=== PATIENT | female | born 1950 | race Caucasian/White ===

== ENCOUNTER → 2016-10-20 12:54 | Outpatient (CLI) | payer MEDICARE ==
[~2016-10-20 12:54] MED LIST: ACCUPRIL40 MG PO; ASPIRIN EC81 M1 PO; CELEBREX200 MG PO; COREG25 MG PO; CRESTOR20 MG PO; EFFEXOR75 MG PO; ELIQUIS2.5 MG PO; HCTZ25 MG PO; HUMULIN R100 U/ML SC; LEVEMIR100 U/M1 SC; NEURONTIN 400400 MG PO; NEXIUM40 MG PO; NORVASC10 MG PO; OXYCODONE HCL5 MG PO; TRAZODONE HCL150 MG PO
[2016-11-16 13:24] VITALS: BMI 31.5
== END | disposition home or self-care (01) ==
LOC: D.LABREF 12:54
DX: M17.12 Unilateral primary osteoarthritis, left knee (principal); Z11.8 Encounter for screening for other infectious and parasitic diseases

== ENCOUNTER → 2016-11-03 17:03 | Outpatient (CLI) | payer MEDICARE ==
[2016-11-16 13:24] VITALS: BMI 31.5
== END | disposition home or self-care (01) ==
LOC: D.MAMMO 11:30
DX: Z12.31 Encounter for screening mammogram for malignant neoplasm of breast (principal)

== ENCOUNTER 2016-11-11 08:00 | Inpatient (IN) | payer MEDICARE ==
[~2016-11-11] VITALS: Ht 157.5 cm; Wt 78.2 kg
[2016-11-11 07:58] LABS: BASOPHILS 0.3 % (0.0-2.0); EOSINOPHILS 2.4 % (0-7); HEMATOCRIT 44.6 % (36.0-48.0); HEMOGLOBIN 15.1 g/dL (12-16); IMMATURE GRANULOCYTES 0.3 % (0-5); LYMPHOCYTES 27.1 % (15-50); MCH 27.7 pg (26.0-34.0); MCHC 33.9 g/dL (31.0-37.0); MCV 81.8 fL (80.0-100.0); MEAN PLATELET VOLUME 11.1 fL (7.4-10.4); MONOCYTES 5.8 % (2-11); NEUTROPHILS 64.1 % (40-80); PLATELET COUNT 173 10x3/uL (130-400); RBC 5.45 10x6/uL (4.00-5.40); RDW 13.7 % (11.5-14.5); WBC 6.8 10x3/uL (4.8-10.8)
[~2016-11-11 08:00] MED LIST changes: -ELIQUIS2.5 MG PO; -OXYCODONE HCL5 MG PO
[2016-11-11 08:08] LABS: INR 1.04 (0.85-1.17); PROTIME 13.5 SECONDS (11.6-15.0)
[2016-11-11 08:09] LABS: APTT 31.8 SECONDS (22.8-39.4)
[2016-11-11 08:27] LABS: ANION GAP 16.6 mmol/L (8-16); CALCIUM 9.4 mg/dL (8.5-10.1); POTASSIUM - SERUM 4.6 mmol/L (3.5-5.1)
[2016-11-11 08:38] LABS: APPEARANCE HAZY (CLEAR); BILIRUBIN NEGATIVE (NEGATIVE); COLOR YELLOW (YELLOW); GLUCOSE NEGATIVE (NEGATIVE); KETONE NEGATIVE (NEGATIVE); LEUKOCYTE ESTERASE 1+ (NEGATIVE); NITRITE NEGATIVE (NEGATIVE); PROTEIN 2+ mg/dL (NEGATIVE); RED CELLS - URINE RARE /hpf (0-5); SPECIFIC GRAVITY 1.005 (1.005-1.020); UROBILINOGEN NORMAL (NORMAL)
[2016-11-11 08:41] LABS: BACTERIA MODERATE /hpf (NONE SEEN)
[2016-11-16] VITALS (12 sets, daily range): BP systolic 126–159; BP diastolic 57–82; Ht 157.5 cm; Wt 78.2 kg
--- NOTE | 2016-11-16 10:28 | NUR ---
LEFT FOOT AND LEG WASHED WITH HIBICLENS AND ALCOHOL PRIOR TO CHLORPREP
--- NOTE | 2016-11-16 11:46 | NUR ---
OPA IN AIRWAY ON ADMIT
--- NOTE | 2016-11-16 12:20 | NUR ---
RECEIVED TO ROOM 2211 FROM RECOVERY ROOM. O2 @3L PER NC. SCDs TO BLE. DRSG/ICE TO LEFT KNEE. BED ALARM TURNED ON. CARE PLAN REVIEWED. IS GIVEN TO PATIENT AND EXPLAINED USE WITH RETURN DEMONSTRATION. PASSWORD OBTAINED. IN ROOM. CALL LIGHT IN REACH. WILL CONTINUE WITH PLAN OF CARE.
--- NOTE | 2016-11-16 14:53 | NUR ---
AFTERNOON MEDS ADMINISTSERED PER STUDENT NURSE AND INSTRUCTOR. C/O PAIN OF 8 SO OXY IR PULLED AND GIVEN TO INSTRUCTOR TO ADMINISTER TO PATIENT. ALSO WAS REPOSITIIONED ABOUT 30 MINUTES PRIOR ON RIGHT SIDE. CALL LIGHT IN REACH.
--- NOTE | 2016-11-16 15:40 | NUR ---
STATES PAIN IS STILL THE SAME. NOT TIME FOR ANYTHING ELSE AT THIS TIME. CALL LIGHT IN REACH. STUDENT NURSE IN ROOM.
--- NOTE | 2016-11-16 17:05 | NUR ---
STUDENT NURSE ADMINISTERED TORADOL AND INSULIN PER ORDER WITH INSTRUCTOR BY HIS SIDE.
--- NOTE | 2016-11-16 18:10 | NUR ---
CPM ON. NO CHANGES IN INITIAL ASSESSMENT. CALL LIGHT IN REACH. BED ALARM ON. SCDs TO BLE. ICE PACK REFILLED. WILL CONTINUE WITH PLAN OF CARE.
--- NOTE | 2016-11-16 19:42 | NUR ---
FAMILY AT BEDSIDE. PATIENT DENIES NEEDS AT THIS TIME. BED IN LOWEST POSITION AND CALL LIGHT WITHIN REACH.
[2016-11-17] VITALS: BP 155/64
[2016-11-17 04:00] VITALS: BP 149/58
[2016-11-17 05:53] LABS: BASOPHILS 0.2 % (0.0-2.0); EOSINOPHILS 2.6 % (0-7); HEMATOCRIT 34.7 % (36.0-48.0); HEMOGLOBIN 11.3 g/dL (12-16); IMMATURE GRANULOCYTES 0.3 % (0-5); LYMPHOCYTES 23.6 % (15-50); MCH 27.4 pg (26.0-34.0); MCHC 32.6 g/dL (31.0-37.0); MCV 84.2 fL (80.0-100.0); MEAN PLATELET VOLUME 11.2 fL (7.4-10.4); MONOCYTES 13.3 % (2-11); PLATELET COUNT 155 10x3/uL (130-400); RBC 4.12 10x6/uL (4.00-5.40); RDW 13.8 % (11.5-14.5); WBC 6.1 10x3/uL (4.8-10.8)
[2016-11-17 06:24] LABS: ALBUMIN 3.3 g/dL (3.4-5.0); ANION GAP 11.2 mmol/L (8-16); BILIRUBIN - TOTAL 0.44 mg/dL (0.2-1.3); CALCIUM 8.3 mg/dL (8.5-10.1); CARBON DIOXIDE 29.1 mmol/L (21.0-32.0); CREATININE - SERUM 1.1 mg/dL (0.6-1.3); POTASSIUM - SERUM 4.3 mmol/L (3.5-5.1); PROTEIN - SERUM 6.3 g/dL (6.4-8.2)
--- NOTE | 2016-11-17 07:28 | NUR ---
meds given per mar, helen well, family in room, cl in reach
--- NOTE | 2016-11-17 07:30 | NUR ---
REPORT RECEIVED FROM CLAIM TRAINEE NURSE. CALL LIGHT IN REACH.
[2016-11-17 08:15] VITALS: BP 153/57
--- NOTE | 2016-11-17 08:47 | NUR ---
ASSESSMENT COMPLETED. OXY IR WITH AM MEDS ADMINISTERED. IV SL'D, CPM REMOVED. BED ALARM ON. SCDs TO BLE. CALL LIGHT IN REACH. WILL CONTINUE WITH PLAN OF CARE.
--- NOTE | 2016-11-17 10:30 | NUR ---
PT SEEN FOR SIGNWRITER NOTE. NO COMPLAINTS AT PRESENT. STATES PAIN MEDICATION EARLIER HAS HELPED BUT NOT CONTROLLED COMPLETEY. REMINDED PT THAT PAIN WOULD NOT BE TOTALLY REMOVED BUT CONTROLLABLE. STATES SHE WOULD BE OK FOR NOW. ICE BAG APPLIED TO LEFT KNEE WHICH IS WRAPPED WITH ILIANA WRAP WITH TOES WARM AND PINK. CALL LIGHT IN REACH
--- NOTE | 2016-11-17 11:10 | NUR ---
* Is the patient Alert and Oriented? Yes 0 * How many steps to enter\exit or inside your home? Ramp 0 * PCP Dr. Sinha 0 * Pharmacy [facility] in [place] 0 * Preadmission Environment Home with Family 0 * ADLs Independent 0 * Equipment Bedside Commode Rolling Walker 0 * List name and contact numbers for known caregivers / representatives who currently or will assist patient after discharge: Spouse - Guy [phone] 0 * Additional services required to return to the preadmission environment? Yes 0 * Can the patient safely return to the preadmission environment? Yes 0 * Has this patient been hospitalized within the prior 30 days at any hospital? No 11/17/2016 11:10 DCP: Discharge Planning Patient Name: CARLOS JARAMILLO Admission Status: Elective Accout number: [id number] Admission Date: 11-16-2016 : 1950 Admission Diagnosis: Attending: ARON Current LOS: 1 Anticipated DC Date: 11-18-2016 Planned Disposition: Outpatient PT\OT Primary Insurance: [employer] ADV Discharge Planning Comments: CM met with patient to assess dc plans/needs. Patient states she lives at home with her , Guy. She reports she was independent with all ADL's prior to admission. She has a rolling walker & BSC at home. She has chosen [facility] for outpatient physical therapy. Anticipate dc 11/18. CM will follow. Specialty Plant Supervisor: Jalyn Mcadams
[2016-11-17 12:26] VITALS: BP 165/68
--- NOTE | 2016-11-17 12:35 | NUR ---
SITTING IN CHAIR. STATES SHE WANTS TO GO BACK TO BED. WILL NOTIFY PHYSICAL THERAPY.
--- NOTE | 2016-11-17 14:48 | NUR ---
STATED THAT SHE VOMITED. AOFRAN [address] JERONIMO'S ORDERS. IV TO LEFT WRIST FLUSHED WITH NS.
[2016-11-17 15:40] VITALS: BP 153/65
--- NOTE | 2016-11-17 16:58 | NUR ---
EVENING MEDS ADMINISTERED. FSBS 343. HUMALOG 12 UNITS SUBQ TO LEFT ARM. FAMILY IN ROOM. CALL LIGHT IN REACH.
--- NOTE | 2016-11-17 18:00 | NUR ---
CPM ON. NO CHANGES IN INITIAL ASSESSMENT. ICE PACK FILLED AND PLACED TO KNEE. SCDs TO BLE. BED ALARM ON. CALL LIGHT IN REACH. WILL CONTINE WITH PLAN OF CARE.
[2016-11-17 19:00] VITALS: BP 151/58
--- NOTE | 2016-11-17 19:52 | NUR ---
PATIENT HAS A GUEST AT BEDSIDE AND DENIES NEEDS AT THIS TIME. BED IN LOWEST POSITION AND CALL LIGHT WITHIN REACH.
[2016-11-18] VITALS: BP 142/87
--- NOTE | 2016-11-18 00:22 | NUR ---
RECIEVED PT RESTING WITH EYES CLOSED, RESP WITH EASE, NO DISTRESS NOTED, FALL PRECAUTIONS IN PLACE, CL IN REACH
--- NOTE | 2016-11-18 01:17 | NUR ---
NO AVAILABLE TELE UNIT FOR PATIENT
[2016-11-18 04:00] VITALS: BP 99/60
[2016-11-18 05:44] LABS: BASOPHILS 0.1 % (0.0-2.0); EOSINOPHILS 1.2 % (0-7); HEMATOCRIT 36.9 % (36.0-48.0); HEMOGLOBIN 11.9 g/dL (12-16); IMMATURE GRANULOCYTES 0.4 % (0-5); MCH 27.4 pg (26.0-34.0); MCHC 32.2 g/dL (31.0-37.0); MCV 84.8 fL (80.0-100.0); MEAN PLATELET VOLUME 11.5 fL (7.4-10.4); MONOCYTES 9.2 % (2-11); NEUTROPHILS 74.1 % (40-80); PLATELET COUNT 170 10x3/uL (130-400); RBC 4.35 10x6/uL (4.00-5.40); RDW 13.9 % (11.5-14.5)
[2016-11-18 05:59] LABS: WBC 11.7 10x3/uL (4.8-10.8)
[2016-11-18 06:02] LABS: ALBUMIN 3.3 g/dL (3.4-5.0); ANION GAP 11.2 mmol/L (8-16); BILIRUBIN - TOTAL 0.7 mg/dL (0.2-1.3); CALCIUM 8.9 mg/dL (8.5-10.1); CARBON DIOXIDE 30.2 mmol/L (21.0-32.0); CREATININE - SERUM 1.1 mg/dL (0.6-1.3); POTASSIUM - SERUM 4.4 mmol/L (3.5-5.1); PROTEIN - SERUM 7.5 g/dL (6.4-8.2)
--- NOTE | 2016-11-18 06:04 | NUR ---
MEDS GIVEN PER MAR, CPM IN PLACE, CL IN REACH, FAMILY IN ROOM
[2016-11-18] MEDS ORDERED: OXYCODONE HCL5 MG PO (07:58)
[2016-11-18] MEDS ORDERED: ELIQUIS2.5 MG PO (07:59)
--- NOTE | 2016-11-18 08:00 | NUR ---
AWAKE AND ALERT. ORIENTED X3. CPM REMOVED AT THIS TIME. SCD'S IN PLACE. LUNGS ARE CLEAR BILATERALLY, NO COUGH NOTED. SKIN IS INTACT WITHOUT REDNESS EXCEPT INCISION TO LEFT KNEE WHICH HAS A DRY INTACT DRESSING IN PLACE. NO IV AT THIS TIME. BREAKFAST SERVED IN ROOM.
[2016-11-18 08:02] VITALS: BP 152/58
--- NOTE | 2016-11-18 08:45 | NUR ---
11/18/2016 8:43 DCP: Discharge Planning Patient Name: CARLOS JARAMILLO Encounter No: [id number] : 1950 Primary Insurance: [employer] ADV Anticipated DC Date: 11-18-2016 Planned Disposition: Outpatient PT\OT External Planned Provider: [facility] DCP follow-up note: Patient has chosen [facility] - Appt. scheduled 11/22 @ 0800 - Rx faxed yesterday. DC order rec'd. Patient and family in agreement with discharge plan. No changes to plan. Case management will follow and assist as needed. Jalyn Mcadams
--- NOTE | 2016-11-18 10:00 | NUR ---
REQUESTED AND GIVEN 10MG OXY IR PO FOR C/O LEFT KNEE PAIN AFTER WORKING WITH THERAPY LEVEL 10. WILL MONITOR.
--- NOTE | 2016-11-18 12:15 | NUR ---
MAGDI SERVED IN ROOM. FEEDS SELF. NO C/O AT THIS TIME. DENIES NEEDS.
--- NOTE | 2016-11-18 14:21 | NUR ---
DISCHARGE INSTRUCTIONS GIVEN BOTH VERBALLY AND WRITTEN. ALL QUESTIONS ANSWERED. NEEDED PRESCRIPTIONS GIVEN TO PATIENT. PATIENT VERBALIZED UNDERSTANDING OF SAME. WAITING ON RIDE TO D/C HOME.
--- NOTE | 2016-11-18 14:46 | NUR ---
HERE NOW. DISCHARGED TO HOME AMBULATORY WITH FAMILY.
--- NOTE | 2016-11-22 09:41 | NUR ---
11/22/2016 9:38 CM: Case Management Rec'd call from [facility] - patient did not show up for her PT appt. this morning. I called & spoke with patient - she states her son forgot to remind her about it. Explained the importance of therapy. Told her they would be calling her to reschedule. She stated she would get it rescheduled and would go to her appointments.
--- NOTE | 2016-11-23 12:19 | OP ---
PATIENT NAME: CARLOS JARAMILLO MEDICAL RECORD: [id number] :[birth year] LOCATION:[facility] ADMISSION DATE:11/16/16 SURGEON: ESTELITA FIELDS MD DATE OF OPERATION: 11/16/2016 PREOPERATIVE DIAGNOSIS: Left knee degenerative joint disease. POSTOPERATIVE DIAGNOSIS: Left knee degenerative joint disease. PROCEDURE PERFORMED: Left total knee arthroplasty. SURGEON: Dwayne Fields MD ANESTHESIA: General with a block for postop pain. CONDITION: She tolerated the procedure well, was transferred to recovery room in stable condition. TOURNIQUET TIME: 38 minutes. ESTIMATED BLOOD LOSS: Minimal. INDICATIONS: This is a 66-year-old female with increasing pain in the left knee. She has tried therapy, injections and medicines without relief. She presents wanting to go ahead and proceed with a knee replacement. We discussed risks, benefits, and alternatives and she wished to proceed. OPERATIVE REPORT: The patient was taken to the operating room and placed in supine position. General anesthesia was obtained. She had had the block placed in the preop holding area. In the operating room, the left knee was confirmed to be the correct knee. It was prepped and draped in normal fashion. After the initial prep and drape, she had a secondary ChloraPrep and Ioban dressing placement. Once this was accomplished, she was exsanguinated and tourniquet was elevated to 350. This was followed by a midline incision. I then made a medial parapatellar incision. The fat pad was removed. The medial soft tissue sleeve was elevated. I entered the femur with a drill, placed the guide and made the distal femoral cut. She had very small femur, it was sized at 57.5. I made the rest of the distal femoral cuts. The tibia was subluxed forward and the proximal tibial cut was made. I placed the femoral trial with the tibial trial and marked it for rotation. I then went back, sized of the tibia is 63 and punched for a 63 at the area that had been marked. I took off the backside of the patella size, this is a 28, drilled the 3 peg holes and then trialed all 3 components together. She had very good flexion and extension with no instability. I therefore copiously irrigated, then cemented into place, a 63 tibia, 57.5 femur, 28 three peg hole patellar button and then the size 12 poly was placed below, the cement dried. The excess cement was removed. She was copiously irrigated again, following which a final 12 poly was placed. She was then irrigated and then closed with #1 barbed suture followed by 2-0 Vicryl, then amina. She was awakened and transferred to the recovery room in stable condition, having tolerated the procedure well. At termination of procedure, she did have tourniquet that had been up 38 minutes. She did receive TXA at the end of the procedure and all sponge and needle counts were correct. TRANSINT:[id number] Voice Confirmation ID: [id number] DOCUMENT ID: [id number] OPERATIVE REPORT [id number] CARLOS JARAMILLO, ESTELITA LARSON MD at 1219 CC: [id number] DICTATION DATE: 11/16/16 1206 ELECTROPLATER APPRENTICE: 11/16/162111 DIS IN 11/18/16 [address] [place] [address]
--- NOTE | 2016-12-07 16:33 | DS ---
PATIENT:CARLOS JARAMILLO :[birth year] MEDICAL RECORD: [id number] DISCHARGE SUMMARY ADMISSION DATE: 11/16/16 DISCHARGE DATE: 11/18/16 DATE OF ADMISSION: 11/16/2016 DATE OF DISCHARGE: 11/18/2016 ADMITTING DIAGNOSIS: Left knee degenerative joint disease. DISCHARGE DIAGNOSES: Left knee degenerative joint disease plus acute blood loss anemia. HISTORY OF PRESENT ILLNESS: Pleasant 66-year-old female with significant degenerative changes in her left knee. She presented to the hospital and underwent a left total knee arthroplasty. She overall did very well with the procedure. It was felt by the 2nd day that she could be discharged to continue with outpatient physical therapy. She is going to continue on anticoagulation therapy with Eliquis on pain medications, planning to see us back in the office in 2-3 weeks. She is going to call if she has any problems. She understood the proper wound care and was discharged with these instructions. TRANSINT:[id number] Voice Confirmation ID: [id number] DOCUMENT ID: [id number] ESTELITA DO MD at 1633 CC: [id number] DICTATION DATE: 11/30/16 1012 BARREL FINISHER: 11/30/169 DIS IN 11/18/16 [id number] [place] [address]
== END 2016-11-18 14:47 | disposition home or self-care (01) | DRG 470 ==
LOC: D.SDCHOLD 08:00 → D.MS 11-16 06:54 → D.SDCHOLD 11-16 08:00 → D.MS 11-16 09:43 → D.SDCHOLD 11-16 10:00 → D.MS 11-18 14:47
PROVIDERS: Family Medicine; ADMIT Orthopaedic Surgery Sports Medicine
PROC: 0SRD0J9 Replacement of Left Knee Joint with Synthetic Substitute, Cemented, Open Approach (ICD-10-PCS; principal; 2016-11-16 09:30)
DX: M17.12 Unilateral primary osteoarthritis, left knee (principal); F17.203 Nicotine dependence unspecified, with withdrawal; D62 Acute posthemorrhagic anemia; I10 Essential (primary) hypertension; E11.65 Type 2 diabetes mellitus with hyperglycemia; E11.40 Type 2 diabetes mellitus with diabetic neuropathy, unspecified; Z79.4 Long term (current) use of insulin; Z95.0 Presence of cardiac pacemaker

== ENCOUNTER 2017-03-14 11:59 | Emergency (ER) | payer MEDICARE ==
[2016-11-16 13:24] VITALS: BMI 31.5
[~2017-03-14 11:59] MED LIST changes: +ELIQUIS2.5 MG PO; +OXYCODONE HCL5 MG PO
[2017-03-14 12:49] LABS: BASOPHILS 0.3 % (0-2); HEMATOCRIT 39.4 % (36.0-48.0); HEMOGLOBIN 13.4 g/dL (12-16); IMMATURE GRANULOCYTES 0.3 % (0-5); LYMPHOCYTES 22.9 % (15-50); MCH 27.8 pg (26.0-34.0); MCV 81.7 fL (80.0-100.0); MEAN PLATELET VOLUME 10.9 fL (7.4-10.4); MONOCYTES 7.4 % (2-11); NEUTROPHILS 68.1 % (40-80); PLATELET COUNT 176 10x3/uL (130-400); RBC 4.82 10x6/uL (4.00-5.40); RDW 13.9 % (11.5-14.5); WBC 6.8 10x3/uL (4.8-10.8)
[2017-03-14 13:01] LABS: ANION GAP 11.3 mmol/L (8-16); BILIRUBIN - TOTAL 0.6 mg/dL (0.2-1.3); CALCIUM 9.2 mg/dL (8.5-10.1); CREATININE - SERUM 1.1 mg/dL (0.6-1.3); POTASSIUM - SERUM 4.3 mmol/L (3.5-5.1); PROTEIN - SERUM 7.8 g/dL (6.4-8.2)
[2017-03-14 13:05] LABS: APPEARANCE CLEAR (CLEAR); BACTERIA FEW /hpf (NONE SEEN); BILIRUBIN NEGATIVE (NEGATIVE); COLOR YELLOW (YELLOW); EPITHELIAL CELLS 0-5 /hpf (0-5); GLUCOSE 1000 mg/dL (NEGATIVE); KETONE NEGATIVE (NEGATIVE); LEUKOCYTE ESTERASE NEGATIVE (NEGATIVE); NITRITE NEGATIVE (NEGATIVE); PROTEIN 2+ mg/dL (NEGATIVE); RED CELLS - URINE 0-5 /hpf (0-5); SPECIFIC GRAVITY 1.015 (1.005-1.020); UROBILINOGEN NORMAL (NORMAL); WHITE CELLS - URINE 0-5 /hpf (0-5)
== END 2017-03-14 18:17 | disposition home or self-care (01) ==
LOC: D.ER 11:59
PROVIDERS: Emergency Medicine
DX: E11.8 Type 2 diabetes mellitus with unspecified complications (principal); R53.1 Weakness; I10 Essential (primary) hypertension; Z95.0 Presence of cardiac pacemaker